=== PATIENT | male | born 1965 | race Caucasian/White ===

== ENCOUNTER → 2023-11-01 16:01 | Outpatient (CLI) | payer OTHER, SELFPAY ==
--- NOTE | ~2023-11-01 | MR_ITS ---
MRI of the left shoulder Technique: Axial proton-density fat-sat images, coronal proton density fat-sat and T2 fat-sat images, and sagittal T1-weighted and T2 fat-sat images were acquired. Clinical History: Pain Findings: There is advanced AC joint degenerative change, with bony productive change at the distal c lavicle and subacromial spur present. Coracoclavicular, coracoacromial, and coracohumeral ligaments a ppear intact. There are complete, full-thickness tears of the supraspinatus and infraspinatus tendons, with fluid-f illed gap measuring up to approximately 4.8 x 3.7 cm in extent. Subscapularis tendon is intact with m oderate tendinosis. Tendon of the long head of the biceps is intact. No definite labral tear identified. Inferior glenohumeral ligament is intact. No significant degenerative change of the humeral head. Flu id passes through the rotator cuff defect into the subacromial/subdeltoid bursa. There is pronounced fatty atrophy of the supraspinatus and infraspinatus muscle bellies. Impression: Complete, full-thickness tears of the supraspinatus and infraspinatus tendons, with associated pronou nced fatty atrophy of these muscle bellies. Advanced AC joint degenerative change. Reviewed, dictated and finalized at location . [employer] Impression: Complete, full-thickness tears of the supraspinatus and infraspinatus tendons, with associated pronounced fatty atrophy of these muscle bellies. Advanced AC joint degenerative change.
== END ==
DX: M75.122 Complete rotator cuff tear or rupture of left shoulder, not specified as traumatic (principal); M19.012 Primary osteoarthritis, left shoulder; G89.29 Other chronic pain
CPT/HCPCS: 73221